=== PATIENT | female | born 1970 | race Caucasian/White ===

== ENCOUNTER 2023-11-22 11:38 | Day surgery (SDC) | payer OTHER, SELFPAY ==
[2023-11-22] MEDS: LACTATED RINGERS 1,000 ML 100 ML IV (14:19)
[2023-11-22 14:24] VITALS: BP 145/72; PULSE 54; RESP 16; TEMP 36.1; O2SAT 99
--- NOTE | 2023-11-22 14:45 | P.HP_ITS ---
History of Present Illness History of Present Illness Date Patient Seen: 11/22/23 Time Patient Seen: 14:45 Chief complaint: SDC Narrative: 53-year-old woman with a family history of colon cancer here for screening colonoscopy. Her mother and grandmother both developed colon cancer. She occasionally has blood per rectum with wiping. [facility] Family History Father Age: 82 Hypertension High cholesterol Grandmother Age: 96 Alzheimer's disease Mother Age: 79 Cancer Social History Smoking Status: Never smoker alcohol intake: former Meds Home Medications and Allergies Allergies Allergy/AdvReac Type Severity Reaction Status Date / Time No Known Drug Allergies Allergy Verified 11/22/23 14:22 Exam Vital Signs (past 8 hours): - 11/22/23 14:24 Temperature 97 F L Pulse Rate 54 L Respiratory Rate 16 Blood Pressure 145/72 H Pulse Oximetry 99 Oxygen Delivery Method Room Air Oxygen Delivery Method Room Air Narrative Exam Narrative: General adult woman alert oriented no acute distress Chest nonlabored respiration Extremities warm well perfused Assessment & Plan Assessment & Plan narrative: The patient requires colorectal screening and colonoscopy is recommended. Technical details were discussed. Risks, benefits, alternatives explained. Risks including but not limited to myocardial infarction, aspiration, bleeding, pain, missed lesion, incomplete examination, need for further radiographic st udies, intestinal injury, and need for major abdominal surgery were discussed. All questions were answered to their satisfaction, and they are in agreement with this plan.
[2023-11-22 15:20] VITALS: BP 111/68; PULSE 74; RESP 22; TEMP 37.1; O2SAT 97
--- NOTE | 2023-11-22 15:23 | P.OP.COLON_ITS ---
Operative Date/Time/Diagnoses Date of procedure: 11/22/23 Time of procedure: 15:23 Pre-op diagnosis: Family history of colon cancer Procedure & Clinicians Study performed: Colonoscopy Same procedure as scheduled: Yes Indications: Colorectal screening Family history of colon cancer Surgeon: Kiran Perez Procedure Notes Procedure in detail: The history and physical was performed/updated and the patient is ASA class is 2. The procedure was discussed in detail with the patient. Potential risks complications including infection, bleeding, missed diagnosis, perforation, need for surgery, and were explained. Their questions were answered and informed consent was obtained. Patient was brought to the procedure room and placed standard monitoring equipment. The patient's vital signs were monitored continuously throughout the entire procedure. Prior to starting time-out was performed. The patient was placed in the left lateral recumbent position. Procedural sedation was administered by anesthesia. Examination began with a thorough inspection of the perianal area there was no evidence of fissures, fistulae, external hemorrhoids or cutaneous malignancy. The colonoscopy scope was then placed into the anal canal and was advanced to the cecum, which was identified by the ileocecal valve, the appendiceal orifice and the confluence of the taenia. The scope was then slowly withdrawn examining colon thoroughly in all directions, irrigating it of any residual stool. The scope was retroflexed within the rectum The patient tolerated the procedure well. They will be discharged once criteria are met. The prep was of good/excellent quality. The withdrawl time was 7 minutes. FINDINGS * Internal hemorrhoids * No masses polyps or inflammation Specimen(s): none sent Impression: Internal hemorrhoids Post-procedure Recommendations: Colonoscopy in 5 years and High fiber diet Disposition: same day surgery
[2023-11-22 15:25] VITALS: BP 111/72; PULSE 72; RESP 14; O2SAT 100
[2023-11-22 15:30] VITALS: BP 119/79; PULSE 71; RESP 16; O2SAT 100
[2023-11-22 15:36] VITALS: BP 131/74; PULSE 64; RESP 14; O2SAT 100
== END 2023-11-22 15:48 | disposition home or self-care (01) ==
PROVIDERS: Family Provider Nurse Practitioner; PCP Family Medicine; Referring Provider Surgery; Visit Provider Surgery
PROC: 0DJD8ZZ Inspection of Lower Intestinal Tract, Via Natural or Artificial Opening Endoscopic (ICD-10-PCS; CPT 45378; principal; 2023-11-22 13:30)
DX: Z12.11 Encounter for screening for malignant neoplasm of colon (principal); Z80.0 Family history of malignant neoplasm of digestive organs; K64.8 Other hemorrhoids
CPT/HCPCS: 45378; J2704